=== PATIENT | female | born 2000 | race Caucasian/White ===

== ENCOUNTER 2020-07-22 12:25 | Outpatient (CLI) | payer OTHER, BC, SELFPAY ==
[2020-07-22 13:28] LABS: Amphetamine Screen Urine Negative (Negative); Barbiturate Screen Urine Negative (Negative); Benzodiazepines Screen Urine Negative (Negative); Cannabinoid Screen Urine Negative (Negative); Cocaine Screen Urine Negative (Negative); Methadone Screen Urine Negative (Negative); Opiate Screen Urine Negative (Negative); Phencyclidine Screen Urine Negative (Negative)
== END 2020-07-22 12:26 | disposition home or self-care (01) ==
PROVIDERS: PCP Family Medicine; Visit Provider Nurse Practitioner Family
DX: Z02.1 Encounter for pre-employment examination (principal)
CPT/HCPCS: 80307

== ENCOUNTER 2020-11-07 06:56 | Outpatient (NON) | payer BC, SELFPAY ==
[2020-11-07 17:11] LABS: SARS-CoV-2 RNA PCR Negative
== END 2020-11-07 06:57 ==
PROVIDERS: PCP Family Medicine; Visit Provider Nurse Practitioner Family
DX: Z20.828 Contact with and (suspected) exposure to other viral communicable diseases (principal); R09.89 Other specified symptoms and signs involving the circulatory and respiratory systems
CPT/HCPCS: 87635; C9803; U0003